=== PATIENT | male | born 1990 | race Caucasian/White ===

== ENCOUNTER → 2017-08-29 11:53 | Outpatient (CLI) | payer SELFPAY | END | disposition home or self-care (01) | LOC: D.LABREF 11:53 | DX: N30.00 Acute cystitis without hematuria (principal) ==

== ENCOUNTER 2018-04-08 06:54 | Inpatient (IN) | payer BC ==
[~2018-04-08] VITALS: Ht 185.4 cm; Wt 87.2 kg
--- NOTE | ~2018-04-08 | MORECARE ---
CASE MANAGEMENT DISCHARGE SUMMARY PATIENT: DEYSI BLAIR UNIT: [id number] ADM DATE: 04/08/18 AGE: 27 : [birth year] SEX: M ROOM/BED: D.2122 AUTHOR: SANTIAGO BEAVERS PHYSICIAN: REFERRING PHYSICIAN: CEASAR TAI MD DATE OF SERVICE: 04/12/18 Discharge Plan Patient Name: DEYSI BLAIR [facility] [facility] 1990 Planned Disposition: Home Anticipated Discharge Date: 04/09/18 Discharge Date: 04/09/2018 Expected LOS: 1 Initial Reviewer: [email or web address] Initial Review Date: 04/12/2018 Generated: 04/12/18 10:55 am Patient Name: DEYSI BLAIR Page [id number] at 0955 All edits/amendments must be made on the electronic document DICTATION DATE: 04/12/18953 SLIPMAN: ANGELINE 04/12/18 0954 RPT#: [id number] DC DATE:04/09/18 STATUS: DIS IN [facility] [address] [place] [address] END OF REPORT
[2018-04-08 07:56] LABS: ALBUMIN 4.2 g/dL (3.4-5.0); ALKALINE PHOSPHATASE 64 U/L (46-116); ALT (SGPT) 22 U/L (10-68); AMYLASE - SERUM 36 U/L (25-115); BILIRUBIN - TOTAL 1.41 mg/dL (0.2-1.3); CALC OSMOLALITY 275 mosm/kg (275-300); CALCIUM 9.9 mg/dL (8.5-10.1); CARBON DIOXIDE 22.1 mmol/L (21.0-32.0); CHLORIDE - SERUM 100 mmol/L (98-107); CREATININE - SERUM 1.2 mg/dL (0.6-1.3); GLUCOSE 129 mg/dL (74-106); LIPASE 71 U/L (73-393); PROTEIN - SERUM 9.2 g/dL (6.4-8.2); SODIUM 137 mmol/L (136-145); UREA NITROGEN 12 mg/dL (7-18); eGFR NON AFRICAN AMERICAN 78 mL/min (90-120)
[2018-04-08 07:57] LABS: HEMATOCRIT 46.4 % (42.0-54.0); HEMOGLOBIN 16.3 g/dL (13.5-17.5); MCH 30.8 pg (26.0-34.0); MCHC 35.1 g/dL (31.0-37.0); MCV 87.7 fL (80.0-100.0); MEAN PLATELET VOLUME 12.3 fL (7.4-10.4); PLATELET COUNT 162 10x3/uL (130-400); RBC 5.29 10x6/uL (4.20-6.10); RDW 12.5 % (11.5-14.5); WBC 21.9 10x3/uL (4.8-10.8)
[2018-04-08 08:25] LABS: LYMPHOCYTES 9 % (15-50); MONOCYTES 16 % (2-11); NEUTROPHILS 72 % (40-80); PLATELET ESTIMATE NORMAL
[2018-04-08 09:49] VITALS: BP 129/079
[2018-04-08 12:58] LABS: APPEARANCE CLEAR (CLEAR); BILIRUBIN NEGATIVE (NEGATIVE); COLOR YELLOW (YELLOW); GLUCOSE NEGATIVE (NEGATIVE); KETONE NEGATIVE (NEGATIVE); NITRITE NEGATIVE (NEGATIVE); PROTEIN NEGATIVE (NEGATIVE); SPECIFIC GRAVITY 1.005 (1.005-1.020); UROBILINOGEN NORMAL (NORMAL)
[2018-04-08 21:10] VITALS: BP 133/96
[2018-04-09 00:30] VITALS: BP 137/95; Ht 185.4 cm; Wt 87.2 kg
[2018-04-09 01:20] VITALS: BP 137/95
[2018-04-09 05:08] LABS: BASOPHILS 0.3 % (0-2); EOSINOPHILS 1.5 % (0-7); HEMATOCRIT 39.7 % (42.0-54.0); HEMOGLOBIN 13.4 g/dL (13.5-17.5); IMMATURE GRANULOCYTES 0.1 % (0-5); LYMPHOCYTES 21.5 % (15-50); MCHC 33.8 g/dL (31.0-37.0); MONOCYTES 12.7 % (2-11); NEUTROPHILS 63.9 % (40-80); PLATELET COUNT 114 10x3/uL (130-400); RBC 4.46 10x6/uL (4.20-6.10); RDW 12.7 % (11.5-14.5); WBC 9.1 10x3/uL (4.8-10.8)
[2018-04-09 05:26] LABS: ALKALINE PHOSPHATASE 46 U/L (46-116); BILIRUBIN - TOTAL 0.42 mg/dL (0.2-1.3); CALCIUM 8.8 mg/dL (8.5-10.1); CARBON DIOXIDE 25.6 mmol/L (21.0-32.0); CHLORIDE - SERUM 107 mmol/L (98-107); GLUCOSE 101 mg/dL (74-106); POTASSIUM - SERUM 4.1 mmol/L (3.5-5.1); PROTEIN - SERUM 7.2 g/dL (6.4-8.2); SODIUM 140 mmol/L (136-145)
[2018-04-09 05:27] LABS: ALBUMIN 3.1 g/dL (3.4-5.0); ALT (SGPT) 13 U/L (10-68); CALC OSMOLALITY 276 mosm/kg (275-300); CREATININE - SERUM 0.8 mg/dL (0.6-1.3); UREA NITROGEN 8 mg/dL (7-18); eGFR NON AFRICAN AMERICAN > 90 mL/min (90-120)
[2018-04-09 06:38] VITALS: BP 121/88
[2018-04-09 08:09] VITALS: BP 126/88
[2018-04-09 12:58] VITALS: BP 125/91
[2018-04-09] MEDS ORDERED: FLORAJEN3 CAPS460 MG PO (13:01)
[2018-04-09] MEDS ORDERED: LEVOFLOXACIN500 MG PO (13:02)
[2018-04-09] MEDS ORDERED: FLAGYL500 MG PO (13:02)
[2018-04-09] MEDS ORDERED: ZOFRAN8 MG PO (13:03)
== END 2018-04-09 14:32 | disposition home or self-care (01) | DRG 872 ==
LOC: D.ER 06:54 → D.M2 10:46 → D.EDHOLD 10:46 → D.M2 22:25
PROVIDERS: Family Medicine
DX: A41.9 Sepsis, unspecified organism (principal); K52.9 Noninfective gastroenteritis and colitis, unspecified; J32.9 Chronic sinusitis, unspecified

== ENCOUNTER 2018-10-25 09:00 | Day surgery (SDC) | payer BC ==
--- NOTE | 2018-10-21 17:04 | HP ---
PATIENT: DEYSI BLAIR MEDICAL RECORD: [id number] ACCOUNT: [id number] LOCATION:[place] : [birth year] ADMISSION DATE: 10/25/18 PCP: No PCP HISTORY AND PHYSICAL EXAMINATION PREOPERATIVE HISTORY AND PHYSICAL HISTORY OF PRESENT ILLNESS: Deysi is 28 years old. He has been having persistent problems with chronic tonsillitis and tonsilliths. He has been admitted for tonsillectomy and adenoidectomy. PAST MEDICAL HISTORY: Includes hypertension. ALLERGIES: COMPAZINE. PHYSICAL EXAMINATION: GENERAL: Healthy-appearing, developmentally normal. FACE: Normal, symmetric. No lesions. EYES: Sclerae and conjunctivae are normal. EARS: Canals and TMs normal. NOSE: No mass, polyps, or drainage. ORAL CAVITY AND OROPHARYNX: A 4+ cryptic tonsils with tonsilliths. NECK: Small jugulodigastric adenopathy bilaterally. CHEST: Clear. CARDIOVASCULAR: Regular rate and rhythm, no murmur. EXTREMITIES: Normal. IMPRESSION: Chronic caseous tonsillitis, pharyngitis. PLAN: Tonsillectomy and adenoidectomy. TRANSINT:[id number] Voice Confirmation ID: [id number] DOCUMENT ID: [id number] SARKIS CORONA MD at 1704 CC: [id number] DICTATION DATE: 10/21/18 1526 SECTION SUPERVISOR: 10/21/18 1545 PRE [facility] [address] [place] [address]
[~2018-10-25] VITALS: Ht 185.4 cm; Wt 90.7 kg
[~2018-10-25 09:00] MED LIST: FLAGYL500 MG PO; FLORAJEN3 CAPS460 MG PO; LEVOFLOXACIN500 MG PO; ZOFRAN8 MG PO
[2018-10-25 09:44] VITALS: BP 145/91; Ht 185.4 cm; Wt 90.7 kg
--- NOTE | 2018-10-25 12:38 | NUR ---
ARMS ACROSS CHEST AND PAPOOSEDSAHIL.
--- NOTE | 2018-10-25 14:42 | NUR ---
DC INSTRUCTIONS GIVEN TO PT/FAMILY. STATE UNDERSTANDING. DC'D IV CATH FULLY INTACT.
--- NOTE | 2018-10-25 15:01 | NUR ---
PT LEFT UNIT VIA WC AT 1502
--- NOTE | 2018-10-27 12:57 | OP ---
PATIENT NAME: DEYSI BLAIR MEDICAL RECORD: [id number] :[birth year] [facility] DATE: SURGEON: SARKIS TA MD DATE OF OPERATION: 10/25/2018 PREOPERATIVE DIAGNOSIS: Chronic pharyngitis. POSTOPERATIVE DIAGNOSIS: Chronic pharyngitis. PROCEDURE: Tonsillectomy and adenoidectomy. SURGEON: Sarkis Ta MD ANESTHESIA: General orotracheal. BLOOD LOSS: Less than 50 cc. SPECIMENS: Right and left tonsil. COMPLICATIONS: None. DISPOSITION: Recovery, stable. PROCEDURE NOTE: He was brought to the operating room, placed in the supine position, sedated and intubated by anesthesia. Eyes were taped. Table was turned 90 degrees. Head drape was applied and he was positioned for tonsillectomy. Using a headlight, a Janny-Iftikhar mouth gag was carefully inserted and elevated on a towel on his chest. The palate was examined and palpated, it was normal. A red rubber catheter was placed through the right side of the nose and the pharynx, grasped with tonsil clamp to retract the soft palate. Using a mirror, the nasopharynx was examined. Suction cautery on a setting of 35 was used to ablate and suction the adenoid pad with no significant bleeding. Choanae and eustachian orifices were normal bilaterally. The red rubber catheter was let down and removed. The tonsils were huge, 4+ caseous tonsils. The right tonsil was grasped at superior pole with a straight Allis clamp. A Spatula tip cautery on a setting of 9 was used to dissect out the tonsil along its capsule, preserving the anterior and posterior tonsillar pillar. Suction cautery on a setting of 18 was used to control the bleeding and then the left tonsil was removed in the same fashion. Then, both sides of the nose were irrigated with saline. The pharynx was suctioned. Tonsillar fossae were agitated. Suction cautery on a setting of 18 was used to control oozing on both sides. With the field completely clean and dry, the Janny-Iftikhar mouth gag was let down and removed. He was awakened, extubated, and transported to recovery in good condition. No complications. TRANSINT:[id number] Voice Confirmation ID: [id number] DOCUMENT ID: [id number] OPERATIVE REPORT [id number] DEYSI BLAIR ERIC MD at 1257 CC: [id number] DICTATION DATE: 10/25/18 1447 TAX ACCOUNTING MANAGER: 10/25/18 1554 [facility] 10/25/18 [place] [id number] [place] [id number]
== END 2018-10-25 15:02 | disposition home or self-care (01) ==
LOC: D.OPS 09:00 → D.PAN 11:45 → D.OPS 11:45 → D.PAN 11:55 → D.OPS 12:15 → D.PAN 12:15 → D.OPS 15:02
PROVIDERS: ATTEND Otolaryngology
DX: J35.01 Chronic tonsillitis (principal); Z01.812 Encounter for preprocedural laboratory examination; I10 Essential (primary) hypertension; Z79.899 Other long term (current) drug therapy

== ENCOUNTER 2018-11-03 06:55 | Day surgery (SDC) | payer BC ==
[~2018-11-03] VITALS: Ht 185.4 cm; Wt 90.9 kg
--- NOTE | ~2018-11-03 | HP ---
PATIENT: DEYSI BLAIR MEDICAL RECORD: [id number] ACCOUNT: [id number] LOCATION:[place] : [birth year] ADMISSION DATE: 11/03/18 PCP: No PCP HISTORY AND PHYSICAL EXAMINATION HISTORY OF PRESENT ILLNESS: Mr. Blair is a 28-year-old male, 9 days status post tonsillectomy, started having bleeding in the morning, brought into the Emergency Room and he was given fluids and steroids, pain medications, clot was removed from the right tonsil, was not then bleeding profusely, but it was bleeding. He was observed for a few hours, but it just would not stop even though it was mild bleeding from the inferior tonsillar pillar on the right side. PAST MEDICAL HISTORY: Includes hypertension. PAST SURGICAL HISTORY: Tonsillectomy 9 days ago. CURRENT MEDICATIONS: Hydrocodone since the tonsillectomy. ALLERGIES: COMPAZINE. PHYSICAL EXAMINATION: GENERAL: Healthy-appearing. FACE: Normal and symmetric. EYES: Sclerae and conjunctivae are normal. EARS: Canals and TMs are normal. NOSE: No masses, polyps or drainage. ORAL CAVITY AND OROPHARYNX: Oozing from the right inferior tonsillar fossa. NECK: No masses, no adenopathy. CHEST: Clear. IMPRESSION: Post-tonsillectomy hemorrhage. PLAN: OR for control. TRANSINT:[id number] Voice Confirmation ID: [id number] DOCUMENT ID: [id number] SARKIS CORONA MD CC: [id number] DICTATION DATE: 11/04/18 0858 [employer]: 11/04/18 0954 [facility] 11/03/18 [place] [id number] [place] [id number]
--- NOTE | ~2018-11-03 | OP ---
PATIENT NAME: DEYSI BLAIR MEDICAL RECORD: [id number] :89 [facility] DATE: SURGEON: SARKIS TA MD DATE OF OPERATION: 11/03/2018 PREOPERATIVE DIAGNOSIS: Post-tonsillectomy hemorrhage. POSTOPERATIVE DIAGNOSIS: Post-tonsillectomy hemorrhage. PROCEDURE: Control of post-tonsillectomy hemorrhage. SURGEON: Sarkis Ta MD ANESTHESIA: General orotracheal. BLOOD LOSS: 10 cc during the procedure. COMPLICATIONS: None. SPECIMENS: None. DISPOSITION: Recovery stable. PROCEDURE IN DETAIL: He was brought to the operating room and placed in supine position, sedated and intubated by anesthesia. The eyes were taped. Table was turned 90 degrees. Head drape was applied. He was positioned for tonsillectomy. Using a headlight, a Janny-Iftikhar mouth gag was carefully inserted and elevated on a towel on his chest. The pharynx was examined. The left fossa was clear. The right one he had some clot oozing from the inferior tonsillar fossa. It was irrigated. Yankauer suction was used to remove all the clot and agitate the area. There was bleeding from near the base of the tongue very inferior tonsillar pillar. Suction cautery on a setting of 18 was used to stop the bleeding, easily and quickly. The rest of the tonsil fossae were irrigated and agitated with Yankauer suction as well. Really nothing else would start bleeding. A NG tube was placed through the mouth into the stomach 3 separate times and suctioned to evacuate some stomach contents. Once that was clear, no more could be evacuated, returned to the pharynx. I irrigated both sides of the nose, agitated the tonsil fossae, carefully examined using a mirror and suction cautery, then let down the mouth gag for a minute, raised it back up, evaluated the area. Field was clean and dry. The Janny-Iftikhar mouth gag was let down and removed. He was awakened, extubated, and transported to recovery in good condition. No complications. TRANSINT:[id number] Voice Confirmation ID: [id number] DOCUMENT ID: [id number] SARKIS TA MD CC: [id number] DICTATION DATE: 11/04/18 09 TOBACCO FARMWORKER: 11/04/18 1054 [facility] 11/03/18 [facility] [address] [place] [address]
[2018-11-03 06:57] VITALS: Ht 185.4 cm; Wt 90.9 kg
[2018-11-03 07:49] LABS: BASOPHILS 0.3 % (0-2); EOSINOPHILS 2.7 % (0-7); HEMATOCRIT 45.7 % (42.0-54.0); HEMOGLOBIN 16.1 g/dL (13.5-17.5); IMMATURE GRANULOCYTES 0.4 % (0-5); LYMPHOCYTES 34.2 % (15-50); MCH 30.8 pg (26.0-34.0); MCHC 35.2 g/dL (31.0-37.0); MCV 87.5 fL (80.0-100.0); MEAN PLATELET VOLUME 11.5 fL (7.4-10.4); MONOCYTES 10.3 % (2-11); NEUTROPHILS 52.1 % (40-80); PLATELET COUNT 192 10x3/uL (130-400); RBC 5.22 10x6/uL (4.20-6.10); RDW 12.4 % (11.5-14.5); WBC 9.2 10x3/uL (4.8-10.8)
[2018-11-03 11:45] VITALS: BP 143/100
== END 2018-11-03 15:07 | disposition home or self-care (01) ==
LOC: D.ER 06:55 → D.OPS 06:55 → EDSTATUS 12:00 → D.OPS 15:07
PROVIDERS: ATTEND Family Medicine
DX: J95.830 Postprocedural hemorrhage of a respiratory system organ or structure following a respiratory system procedure (principal); I10 Essential (primary) hypertension; Z79.891 Long term (current) use of opiate analgesic; Z01.812 Encounter for preprocedural laboratory examination

== ENCOUNTER 2019-07-23 09:25 | Emergency (ER) | payer BC ==
[~2019-07-23] VITALS: Ht 185.4 cm; Wt 88.6 kg
[2019-07-23 09:28] VITALS: BP 125/74; Ht 185.4 cm; Wt 88.6 kg
[2019-07-23] MEDS ORDERED: ERYTHROMYCIN OPT1 GM EACH EYE (09:32)
== END 2019-07-23 09:37 | disposition home or self-care (01) ==
LOC: D.ER 09:25
DX: S05.11XA Contusion of eyeball and orbital tissues, right eye, initial encounter (principal); S05.01XA Injury of conjunctiva and corneal abrasion without foreign body, right eye, initial encounter; W22.8XXA Striking against or struck by other objects, initial encounter; Y93.9 Activity, unspecified; Y92.9 Unspecified place or not applicable; I10 Essential (primary) hypertension